=== PATIENT | female | born 1965 | race Caucasian/White ===

== ENCOUNTER 2018-10-26 06:05 | Day surgery (SDC) | payer OTHER ==
--- NOTE | 2018-10-23 08:00 | HP ---
DATE OF SURGERY: 10/26/2018 ANTICIPATED PROCEDURES: 1) EGD. 2) Colonoscopy. HISTORY OF PRESENT ILLNESS: EGD for not being able to keep food down. Gastric bypass ten years ago. Colonoscopy. Patient has a history of polyps, last scope 2015. PAST MEDICAL HISTORY: ALLERGIES: NUBAIN, DILAUDID, TORADOL. MEDICATIONS: Maxalt, Imitrex. PAST SURGICAL HISTORY: Cholecystectomy. Tubal ligation. Rotator cuff. Lithotripsy. SOCIAL HISTORY: Negative. FAMILY HISTORY: Negative. REVIEW OF SYSTEMS: CVS: Negative. Pulmonary: Negative. GI: As above. : Stones. PHYSICAL EXAMINATION: VITAL SIGNS: Normal. CHEST: Clear. COR: Regular. ABDOMEN: No palpable organomegaly or mass. IMPRESSION: Patient requiring both EGD and colonoscopy.
[2018-10-26] MEDS ORDERED: DIPRIVAN 200 MG/20 ML IV ONE (06:06)
[2018-10-26] MEDS ORDERED: Lactated Ringers 1,000 ML IV ONE (06:16)
[2018-10-26] MEDS ORDERED: Lactated Ringers 1,000 ML IV SCH ×2 (06:30)
[2018-10-26 06:37] VITALS: O2SAT 99
[2018-10-26] MEDS ORDERED: Transderm Scop 1.5MG Patch TOP PRN (07:48)
[2018-10-26] MEDS ORDERED: Transderm Scop 1.5MG Patch ONE (07:50)
[2018-10-26 10:06] VITALS: BP 126/85; PULSE 81
--- NOTE | 2018-10-27 09:23 | OP ---
SURGERY DATE/TIME: 10/26/2018814 PREOPERATIVE DIAGNOSIS: Dysphagia. POSTOPERATIVE DIAGNOSIS: Gastric bypass severe stricture approximately 2 mm. PROCEDURE: EGD with dilatation. The stricture was able to be dilated to 6 mm which is still quite small. SURGEON: Joe Medrano M.D. ANESTHESIA: MAC. COMPLICATIONS: None. CONDITION: Stable. INDICATION: The patient did have a very sensitive airway prompting laryngeal spasm with consistent satisfactory treatment of such. DESCRIPTION OF PROCEDURE: The scope introduced. Esophagus normal down to gastroesophageal junction. There was 2 to 3 gastroesophageal reflux disease. There was no hiatal hernia. There was a 60 cc pouch. There was a pinpoint stricture. The balloon was just barely able to be teased into the stricture. It was insufflated. The stricture was stretched from 2 to 6 mm but it was still not big enough for the scope to pass but you could see through there better now. It was at least slightly open. The scope was withdrawn. The patient did have intermittent laryngeal spasm treated with positive airway management, very satisfactory per anesthesia. IMPRESSION: This stricture is tight, was not totally dilated today and I think there needs to be strong consideration or revision of this patient's anastomosis.
== END 2018-10-26 10:19 | disposition home or self-care (01) ==
LOC: SDC 06:05
PROVIDERS: ATTEND Surgery
DX: K22.2 Esophageal obstruction (principal); J38.5 Laryngeal spasm; R13.10 Dysphagia, unspecified; Z98.84 Bariatric surgery status
CPT/HCPCS: C1726; J2704; A9270-GY

== ENCOUNTER 2020-09-24 09:35 | Day surgery (SDC) | payer OTHER ==
[2020-09-24] MEDS ORDERED: BUPIVACAINE 0.5% VIAL IJ ONE (09:36)
[2020-09-24] MEDS ORDERED: Depo-Medrol 40 MG/ML IM ONE (09:36)
[2020-09-24] MEDS ORDERED: Ketamine HCl 50 MG/ML ONE (10:56)
[2020-09-24] MEDS ORDERED: DIPRIVAN 200 MG/20 ML IV ONE (10:57)
--- NOTE | 2020-09-24 12:44 | XRAY ---
Indication: Left shoulder injection Intraoperative fluoroscopy provided for 17 seconds. 2 digital spot images submitted for interpretation demonstrates needle tip projecting over the left glenohumeral joint superiorly. Second needle tip projects subacromial. Small amount of contrast injected for both needle tip placement. Correlate with intraoperative findings/report.
--- NOTE | 2020-09-24 12:46 | XRAY ---
32 seconds fluoroscopy time in surgery for intra-articular and subachromial injections of the right shoulder.
--- NOTE | 2020-09-24 12:46 | XRAY ---
Indication: Right shoulder injection Intraoperative fluoroscopy provided for 32 seconds. 2 digital spot images submitted for interpretation demonstrates needle tip projecting over the right glenohumeral joint superiorly. Second needle tip projects subacromial. Small amount of contrast injected for both needle tip placement. Correlate with intraoperative findings/report.
--- NOTE | 2020-09-24 12:56 | XRAY ---
17 seconds fluoroscopy time in surgery for intra-articular and subachromial injections of the left shoulder.
[2020-09-24] MEDS ORDERED: Lactated Ringers 1,000 ML IV ONE (16:10)
== END 2020-09-24 11:41 | disposition home or self-care (01) ==
LOC: SDC-PAIN 09:35
PROVIDERS: ATTEND Psychiatry & Neurology Pain Medicine
DX: M19.012 Primary osteoarthritis, left shoulder (principal); M19.011 Primary osteoarthritis, right shoulder; M75.52 Bursitis of left shoulder; M75.51 Bursitis of right shoulder; D64.9 Anemia, unspecified; G43.909 Migraine, unspecified, not intractable, without status migrainosus; Z79.899 Other long term (current) drug therapy
CPT/HCPCS: 20610; 73030; 77002; J1030; J2704; Q9966

== ENCOUNTER 2022-08-25 15:18 | Day surgery (SDC) | payer OTHER ==
[2022-08-25] MEDS ORDERED: Sodium Chloride 0.9(Preservative Free) 10 ML IJ ONE (15:19)
[2022-08-25] MEDS ORDERED: Decadron 4 MG INJ IV ONE (15:19)
[2022-08-25] MEDS ORDERED: LIDOCAINE HCL 1% 50 MG/5 ML VL PF IJ ONE (15:19)
--- NOTE | 2022-08-25 19:46 | XRAY ---
Indication: Cervical QUETA. Intraoperative fluoroscopy provided for 37 seconds. 4 digital spot images submitted for interpretation demonstrates posterior needle tip projecting posterior to cervical thoracic junction. Small amount of contrast injected for needle tip placement. Correlate with intraoperative findings/report.
--- NOTE | 2022-08-26 10:46 | XRAY ---
37 seconds fluoroscopy time in surgery for cervical QUETA.
== END 2022-08-25 17:45 | disposition home or self-care (01) ==
LOC: SDC-PAIN 15:18
PROVIDERS: ATTEND Psychiatry & Neurology Pain Medicine
DX: M54.12 Radiculopathy, cervical region (principal); Z79.899 Other long term (current) drug therapy
CPT/HCPCS: 62321; 72040; 77003; J1100; J2001; Q9966

== ENCOUNTER 2024-06-19 16:15 | Emergency (ER) | payer BC ==
[2024-06-19 16:48] VITALS: TEMP 97
[2024-06-19] MEDS: TORAdol 30 mg Injection IV ONE (17:35)
[2024-06-19] MEDS ORDERED: MORPHINE SULFATE 4 MG INJ ONE (17:37)
[2024-06-19] MEDS ORDERED: Zofran 4 MG/2 ML VIAL ONE (17:37)
[2024-06-19] MEDS ORDERED: Sodium Chloride 0.9% 1000 ML 1,000 ML ONE (17:37)
[2024-06-19 17:39] LABS: Absolute Neutrophil Ct (ANC) 3.88 x10^3/uL (1.56-6.13); BASOPHIL % 0.9 % (0.1-1.2); Basophil (Absolute #) 0.06 x10^3/uL (0.01-0.08); Eosinophil % 11.7 % (0.7-5.8); Eosinophil (Absolute #) 0.76 x10^3/uL (0.04-0.36); Hematocrit 36.2 % (34.1-44.9); Hemoglobin 12.3 g/dL (11.2-15.7); IMMATURE GRAN # 0.01 x10^3u/L (0.001-0.031); IMMATURE GRAN % 0.2 % (0.001-0.429); Lymphocyte (Absolute #) 1.28 x10^3/uL (1.18-3.74); Lymphocytes % 19.7 % (19.3-51.7); Mean Cell Volume 82.3 fL (79.4-94.8); Monocyte (Absolute #) 0.51 x10^3/uL (0.24-0.86); Monocytes % 7.8 % (4.7-12.5); Neutrophil % 59.7 % (34.0-71.1); Platelet Count 146 x10^3/uL (182-369); Red Cell Distribution Width 12.4 % (11.7-14.4); White Blood Count 6.5 x10^3/uL (3.98-10.04)
[2024-06-19] MEDS: Zofran 4 MG/2 ML VIAL IV ONE (17:42)
[2024-06-19] MEDS: MORPHINE SULFATE 4 MG INJ IV ONE (17:42)
[2024-06-19] MEDS: Sodium Chloride 0.9% 1000 ML 1,000 ML IV SCH (17:42)
[2024-06-19 17:48] LABS: Appearance Clear (Clear); Bacteria None Seen /HPF (None Seen); Bilirubin Negative (Negative); Blood Moderate (Negative); Epithelial Cells Few /HPF (None Seen); Glucose, Urine Negative (Negative); Hyaline Casts NONE SEEN /LPF (0-2); Ketones Negative (Negative); Leukocyte Esterase Small (Negative); Nitrite Negative (Negative); Ph 6.5 (4.6-8.0); Protein,Urine Dip Trace (Negative); RBC 51-100 /HPF (0-5)
[2024-06-19 17:52] LABS: ALBUMIN 3.8 g/dL (3.5-5.0); ANION GAP 13.8 MEQ/L (5-15); BILIRUBIN,TOTAL 0.5 mg/dL (0.2-1.3); Calcium 8.9 mg/dL (8.4-10.2); Creatinine 1 0.88 mg/dL (0.52-1.04); EST GLOMERULAR FILTRATION RATE 75.7 ML/MIN; Potassium 3.1 mmol/L (3.5-5.1)
--- NOTE | 2024-06-19 18:03 | ERPHSYRPT ---
- History of Present Illness Time Seen by Provider: 06/19/24 16:30 Source: patient Exam Limitations: no limitations Patient Subjective Stated Complaint: pt here for right flank pain today, no fever, no vomiting Triage Nursing Assessment: pt alert, walked in, resp easy, skin w/d/p. abd soft, urine clear yellow Physician History: 58-year-old female presents to emergency department for evaluation of left-sided flank pain. Flank pain started just prior to arrival. Pain described as an ache that is localized no radiation. No significant worsening or improving factors. Patient reports history of multiple kidney stones. Patient has had multiple lithotripsies. Symptoms are similar. No hematuria. No trauma no feve r. No chest pain or shortness of breath. Symptoms are moderate in intensity. Patient has multiple allergies. Patient treated with morphine. Patient otherwise feels well. She denies urinary symptomology. No hematuria no dysuria no frequency or urgency. Patient otherwise feels well. She voices no other complaints or concerns at this time. Portions of this note were created with voice recognition technology. There may be grammatical, spelling, punctuation or sound alike errors Timing/Duration: today Severity: moderate Modifying Factors: Improves With: nothing Associated Symptoms: denies symptoms Allergies/Adverse Reactions: ketorolac tromethamine [From Toradol] Allergy (Severe, Verified 06/19/24 16:28) Swelling of Tongue and Lips nalbuphine HCl [From Nubain] Allergy (Verified 06/19/24 16:28) Swelling of Tongue and Lips hydromorphone [From Dilaudid] Adverse Reaction (Intermediate, Verified 06/19/24 16:28) Headache Home Medications: Rizatriptan Benzoate [Maxalt] 10 mg PO Q2H/PRN PRN 10/19/18 [History] Gabapentin 300 mg PO TID 07/25/20 [History] Pregabalin [Lyrica] 50 mg PO TID 07/25/20 [History] Sumatriptan Succinate 6 mg [Imitrex 6 MG/0.5 ML] 25 mg SQ UD 07/25/20 [History] Hx Tetanus, Diphtheria Vaccination/Date Given: No Hx Influenza Vaccination/Date Given: Yes Hx Pneumococcal Vaccination/Date Given: Yes Immunizations Up to Date: Yes Travel Risk - International Travel Have you traveled outside of the country in past 3 weeks: No - Emerging Infectious Disease Are you exhibiting symptoms associated with any current EIDs: No - Review of Systems Constitutional: No Symptoms, No Fever, No Chills Eyes: No Symptoms Ears, Nose, & Throat: No Symptoms Respiratory: No Symptoms, No Cough, No Dyspnea Cardiac: No Symptoms, No Chest Pain, No Edema, No Syncope Abdominal/Gastrointestinal: No Symptoms, No Abdominal Pain, No Nausea, No Vomiti ng, No Diarrhea Genitourinary Symptoms: No Symptoms, No Dysuria Musculoskeletal: No Symptoms, No Back Pain, No Neck Pain Skin: No Symptoms, No Rash Neurological: No Symptoms, No Dizziness, No Focal Weakness, No Sensory Changes Psychological: No Symptoms Endocrine: No Symptoms Hematologic/Lymphatic: No Symptoms Immunological/Allergic: No Symptoms All Other Systems: Reviewed and Negative - Past Medical History Pertinent Past Medical History: Yes Neurological History: Migraines ENT History: No Pertinent History Cardiac History: No Pertinent History Respiratory History: No Pertinent History Endocrine Medical History: No Pertinent History Musculoskeletal History: No Pertinent History GI Medical History: No Pertinent History History: Other Psycho-Social History: No Pertinent History Female Reproductive Disorders: No Pertinent History Other Medical History: hx sepsis of blood after kidney stone, anemia - Past Surgical History Past Surgical History: Yes Neuro Surgical History: No Pertinent History Cardiac: No Pertinent History Respiratory: No Pertinent History Gastrointestinal: Cholecystectomy, Other Genitourinary: Other Musculoskeletal: Orthopedic Surgery Female Surgical History: Hysterectomy, Tubal Ligation Other Surgical History: gastric bypass, lithotripsy, esophageal dilitation, shoulder repair. cervical spine injections. - Social History Smoking Status: Never smoker Exposure to second hand smoke: No Drug Use: none Patient Lives Alone: No - Social Determinants of Health Will the patient participate in the screening: Declined to provide - Nursing Vital Signs Nursing Vital Signs: Initial Vital Signs Temperature 97.0 F 06/19/24 16:15 Pulse Rate 82 06/19/24 16:15 Respiratory Rate 16 06/19/24 16:15 Blood Pressure 142/82 06/19/24 16:15 O2 Sat by Pulse Oximetry 98 06/19/24 16:15 Pain Scale Pain Intensity 4 - Physical Exam General Appearance: no apparent distress, alert Eye Exam: PERRL/EOMI, eyes nml inspection Ears, Nose, Throat Exam: normal ENT inspection, moist mucous membranes Neck Exam: normal inspection, non-tender, supple, full range of motion Respiratory Exam: normal breath sounds, lungs clear, No respiratory distress Cardiovascular Exam: regular rate/rhythm, normal heart sounds, normal peripheral pulses Gastrointestinal/Abdomen Exam: soft, normal bowel sounds, other (Left CVA tenderness), No tenderness, No mass Back Exam: normal inspection, normal range of motion, No CVA tenderness, No vertebral tenderness Extremity Exam: normal inspection, normal range of motion, pelvis stable Neurologic Exam: alert, oriented x 3, cooperative, normal mood/affect, sensation nml, No motor deficits Skin Exam: normal color, warm, dry, No rash Lymphatic Exam: No adenopathy SpO2 Interpretation: normal SpO2: 96 O2 Delivery: Room Air - Course Nursing assessment & vital signs reviewed: Yes - CT Exams Abdomen/Pelvis CT Interpretation: Tele-radiologist Report (Left ureteral lithiasis measuring 4.2 mm and 4.6 mm with hydronephrosis.) Ordered Tests: Active Orders 24 hr Category Date Time Status IV Insertion STAT Care 06/19/24 17:22 Completed ABDOMEN AND PELVIS W/0 CONTRAS [CT] Stat Exams 06/19/24 17:22 Completed CBC W DIFF Stat Lab 06/19/24 17:30 Completed CMP Stat Lab 06/19/24 17:30 Completed Medication Summary Discontinued Medications Generic Name Dose Route Start Last Admin Trade Name Freq PRN Reason Stop Dose Admin Sodium Chloride 1,000 mls @ 100 mls/hr 06/19/24 17:30 06/19/24 17:42 Sodium Chloride 0.9% 1000 Ml IV 07/19/24 17:29 100 mls/hr .Q10H PADMINI Administration Ceftriaxone Sodium 1 gm in 100 mls @ 200 mls/hr 06/19/24 19:48 06/19/24 21:26 Rocephin 1 Gm / 100 Ml Nacl IV 06/19/24 20:17 Infused STAT ONE Infusion Ceftriaxone Sodium Confirm 06/19/24 20:00 Rocephin 1 Gm / 100 Ml Nacl Administered 06/19/24 20:01 Dose 1 gm in 100 mls @ ud IV .STK-MED ONE Sodium Chloride Confirm 06/19/24 17:37 Sodium Chloride 0.9% 1000 Ml Administered 06/19/24 17:38 Dose 1,000 mls @ ud .ROUTE .STK-MED ONE Ketorolac Tromethamine 30 mg 06/19/24 17:22 06/19/24 17:35 Ketorolac Tromethamine 30 Mg/Ml Inj IV 06/19/24 17:23 Not Given STAT ONE Morphine Sulfate 4 mg 06/19/24 17:29 06/19/24 17:42 Morphine Sulfate 4 Mg/Ml Injection IV 06/19/24 17:30 4 mg STAT ONE Administration Morphine Sulfate Confirm 06/19/24 17:37 Morphine Sulfate 4 Mg/Ml Injection Administered 06/19/24 17:38 Dose 4 mg .ROUTE .STK-MED ONE Ondansetron HCl Confirm 06/19/24 17:37 Ondansetron Hcl 4 Mg/2 Ml Vial Administered 06/19/24 17:38 Dose 4 mg .ROUTE .STK-MED ONE Ondansetron HCl 4 mg 06/19/24 17:40 06/19/24 17:42 Ondansetron Hcl 4 Mg/2 Ml Vial IV 06/19/24 17:41 4 mg STAT ONE Administration Potassium Chloride 40 meq 06/19/24 19:36 06/19/24 20:01 Potassium Chloride Tab 10 Meq Tab PO 06/19/24 19:37 40 meq STAT ONE Administration Potassium Chloride Confirm 06/19/24 20:00 Potassium Chloride Tab 10 Meq Tab Administered 06/19/24 20:01 Dose 40 meq .ROUTE .STK-MED ONE Lab/Rad Data: Laboratory Result Diagrams 06/19/24 17:30 06/19/24 17:30 Laboratory Results 06/19/24 06/19/24 06/19/24 Range/Units Unknown 17:30 17:30 WBC 6.5 (3.98-10.04) x10^3/uL RBC 4.40 (3.93-5.22) x10^6/uL Hgb 12.3 (11.2-15.7) g/dL Hct 36.2 (34.1-44.9) % MCV 82.3 (79.4-94.8) fL MCH 28.0 (25.6-32.2) pg MCHC 34.0 (32.2-35.5) g/dL RDW 12.4 (11.7-14.4) % Plt Count 146 L (182-369) x10^3/uL MPV 10.0 (9.4-12.3) fL Gran % 59.7 (34.0-71.1) % Immature Gran % (Auto) 0.2 (0.001-0.429) % Nucleat RBC Rel Count 0.0 (0.00-0.2) % Eos # (Auto) 0.76 H (0.04-0.36) x10^3/uL Immature Gran # (Auto) 0.01 (0.001-0.031) x10^3u/L Absolute Lymphs (auto) 1.28 (1.18-3.74) x10^3/uL Absolute Monos (auto) 0.51 (0.24-0.86) x10^3/uL Absolute Nucleated RBC 0.00 (0.00-0.012) x10^3u/L Lymphocytes % 19.7 (19.3-51.7) % Monocytes % 7.8 (4.7-12.5) % Eosinophils % 11.7 H (0.7-5.8) % Basophils % 0.9 (0.1-1.2) % Absolute Granulocytes 3.88 (1.56-6.13) x10^3/uL Basophils # 0.06 (0.01-0.08) x10^3/uL Sodium 144 (135-145) mmol/L Potassium 3.1 L (3.5-5.1) mmol/L Chloride 112 H (98-107) mmol/L Carbon Dioxide 21 L (22-30) mmol/L Anion Gap 13.8 (5-15) MEQ/L BUN 15 (7-17) mg/dL Creatinine 0.88 (0.52-1.04) mg/dL Estimated GFR 75.7 ML/MIN Glucose 95 (74-106) mg/dL Calcium 8.9 (8.4-10.2) mg/dL Total Bilirubin 0.50 (0.2-1.3) mg/dL AST 21 (14-36) U/L ALT 15 (0-35) U/L Alkaline Phosphatase 70 (38-126) U/L Serum Total Protein 7.0 (6.3-8.2) g/dL Albumin 3.8 (3.5-5.0) g/dL Urine Color Yellow (Yellow) Urine Appearance Clear (Clear) Urine pH 6.5 (4.6-8.0) Ur Specific [place] 1.020 (1.005-1.030) Urine Protein Trace A (Negative) Urine Glucose (UA) Negative (Negative) mg/dL Urine Ketones Negative (Negative) Urine Blood Moderate A (Negative) Urine Nitrite Negative (Negative) Urine Bilirubin Negative (Negative) Urine Urobilinogen 1.0 A (0.2) mg/dL Ur Leukocyte Esterase Small A (Negative) U Hyaline Cast (Auto) NONE SEEN (0-2) /LPF Urine Microscopic RBC 51-100 A (0-5) /HPF Urine Microscopic WBC 11-20 A (0-5) /HPF Ur Epithelial Cells Few (None Seen) /HPF Urine Bacteria None Seen (None Seen) /HPF Urine Culture Reflexed YES (NO) - Progress Progress: improved Progress Note: Spoke to GE Hamilton for Dr. Flores at 8:53 PM. She will contact Dr. Flores advised him of the case and return call for definitive plan of care 06/19/24 21:[address] Flores at 9:07 PM. However he is requesting that we consult with hospitalist for formal admission 06/19/24 21:07 Patient accepted by at 9:12 PM. They will contact us when they have a bed available 06/19/24 21:14 58-year-old female with a history of kidney stones and lithotripsy procedure presents to our ED with acute onset left flank pain. Physical exam shows mild left-sided costovertebral angle tenderness. Urinalysis reveals a microscopic hematuria and a UTI. CT scan reveals 2 left ureteral lithiasis 1 proximal 1 distal. Antibiotics administered. Case discussed with urology as above. Patient will require decompression of the obstructing stones. Patient transferred to [facility] for further evaluation and treatment. Plan of care discussed with patient. She agrees to transfer to [facility] for further evaluation and treatment. Portions of this note were created with voice recognition technology. There may be grammatical, spelling, punctuation or sound alike errors Complexity of problem addressed is moderate acute complicated no critical care time. Complex of data reviewed and analyzed is extensive. Test ordered chest reviewed results analyzed and correlated clinically with history and physical exam. Management discussed with urology services and hospitalist as described above. Risk of complication and or risk of morbidity/mortality of patient management is high. Patient transferred to higher level of care. Vital stable. Time spent to transfer patient is approximately 20 minutes. Plan of care established for shared decision making. No social determinants of health present to impede follow-up. Portions of this note were created with voice recognition technology. There may be grammatical, spelling, punctuation or sound alike errors 06/20/24 01:35 Counseled pt/family regarding: lab results, diagnosis, need for follow-up - Departure Departure Disposition: Home Clinical Impression: Flank pain, Hematuria, Pyuria, Renal colic on left side, Ureterolithiasis, UTI (urinary tract infection), Hydronephrosis, Hepatomegaly, Hypokalemia Condition: Stable Critical Care Time: No Referrals: HAMIDA WONG [Primary Care Provider] - Follow up/PCP as directed
--- NOTE | 2024-06-19 18:39 | XRAY ---
CLINICAL HISTORY: FLANK PAIN COMPARISON: None TECHNIQUE: Non-contrast CT of the abdomen and pelvis was performed, with the following protocol: axial images, and reconstructed coronal and sagittal images. No intravenous contrast was administered. One of the following dose reduction techniques was utilized for this exam: Automated exposure control, adjustment of the mA and/or kV according to patient size, and use of iterative reconstruction.total DLP =[id number] FINDINGS: Abdomen: Liver: The liver is enlarged measuring 17 cm. No focal lesions, cysts, or masses were identified. Gallbladder and Biliary System: The gallbladder is surgically removed. Pancreas: Pancreatic head, body, and tail are visualized and appear normal in size and density. No pancreatic masses or calcifications were noted. Spleen: Normal in size, shape, and density. No splenic lesions or masses were identified. scattered foci of small calcification likely sequelae of old granulomatous infection Kidneys and Adrenal Glands: Right kidney is normal in size, shape, and position. Cortical thickness is within normal limits. Left kidney is relatively smaller in size with cortical irregularities likely sequel of chronic pyelonephritis. Bilateral small renal stones ranging in size 2 to 6 mm. left-sided upper ureteric and vesicoureteric junction stones measuring 4.6 and 4.2 mm respectively with subsequent mild hydroureteronephrosis. No right-sided backpressure changes Adrenal glands are unremarkable. Evidence of gastric bariatric surgery. Appendix: No signs of acute appendicitis. Pelvis: Urinary Bladder: Normal in contour and wall thickness. No intraluminal lesions. Uterus: is surgically removed No adnexal masses Peritoneal and Retroperitoneal Structures: No free fluid or abnormal fluid collections were identified within the abdomen or pelvis. No lymphadenopathy was noted. Bowel: The visualized bowel loops are normal in caliber and appearance. No evidence of bowel obstruction or wall thickening. Evidence of previous gastric surgery is seen. Bones and Soft Tissues: Mild degenerative changes of the scanned spine Scanned lower chest cuts reveal a right-sided lower lung zone calcified nodule measuring 8 mm likely granuloma IMPRESSION: 1. Left-sided upper ureteric and vesicoureteric junction stones measuring 4.6 and 4.2 mm respectively with subsequent mild hydroureteronephrosis 2. Bilateral small renal stones 3. Sequel of left-sided old pyelonephritis 4. Mild hepatomegaly. 5. Splenic scattered foci of small calcification likely sequelae of old granulomatous infection 6. Right-sided lower lung zone calcified nodule likely old granuloma [facility] was called at [phone] at 05:29 PM LABOR ECONOMIST, 06/19/2024, and ARSEN Ornelas Nurse was informed regarding the presence of important medical findings in the reports. Electronically Signed by: Johan Aiken MD. (06/19/2024 18:35:14 EST)
[2024-06-19 18:51] VITALS: RESP 18
[2024-06-19] MEDS ORDERED: ROCEPHIN 1 GM / 100 ML NaCl 1 GM/100 ML IVPB IV ONE (20:00)
[2024-06-19] MEDS ORDERED: Klor Con ONE (20:00)
[2024-06-19] MEDS: ROCEPHIN 1 GM / 100 ML NaCl 1 GM/100 ML IVPB IV ONE (20:01)
[2024-06-19] MEDS: Klor Con PO ONE (20:01)
[2024-06-20 00:02] VITALS: BP 104/62; PULSE 72; O2SAT 96
== END 2024-06-20 00:25 | disposition short-term general hospital (02) ==
LOC: ED 16:15
DX: N39.0 Urinary tract infection, site not specified (principal); R10.32 Left lower quadrant pain; Z87.442 Personal history of urinary calculi; R31.9 Hematuria, unspecified; N20.1 Calculus of ureter; N13.30 Unspecified hydronephrosis; E87.6 Hypokalemia
CPT/HCPCS: 36415; 74176; 80053; 81001; 85025; 87086; 96374; 96375; 99285; J0696; J2270; J2405; A9270-GY

== ENCOUNTER 2024-09-06 11:54 | Day surgery (SDC) | payer BC ==
--- NOTE | 2024-09-04 14:09 | HP ---
HISTORY OF PRESENT ILLNESS: The patient is a 58-year-old female who presents with complaints of some hemorrhoids that are painful. They have been acting up the past 3 to 4 weeks. She had a colonoscopy about 2022. It was limited to the hepatic flexure for tortuosity. She does have some bleeding. She would like to have her hemorrhoids removed. PAST MEDICAL HISTORY: Migraines, anxiety, depression. HOME MEDICATIONS: Sumatriptan, mirtazapine, alendronate, Botox injection, Abilify, duloxetine. ALLERGIES: Toradol and Dilaudid. PAST SURGICAL HISTORY: Hysterectomy, rotator cuff, bariatric, tonsils, sinus, tubal ligation, lithotripsy. SOCIAL HISTORY: Negative. FAMILY HISTORY: None. REVIEW OF SYSTEMS: CONSTITUTIONAL: Denies fever or chills. CHEST: Denies shortness of breath. CARDIOVASCULAR: Denies chest pain. ABDOMEN: Denies abdominal pain. PHYSICAL EXAMINATION: GENERAL: No acute distress. CARDIOVASCULAR: Regular rate and rhythm. RESPIRATORY: Nonlabored. No shortness of breath ABDOMEN: Soft. RECTAL: Large external hemorrhoids. IMPRESSION: History of polyp, incomplete last colonoscopy, symptomatic hemorrhoids. PLAN: Colonoscopy and hemorrhoidectomy with Dr. Joe Medrano. This report was dictated for Dr. Medrano by Verna Hernández NP.
[2024-09-06] MEDS: Lactated Ringers 1,000 ML IV SCH (12:07)
[2024-09-06] MEDS: CEFAZOLIN 2 GM/100 ML NaCl 2 GM/100 ML IVPB IV SCH (12:07)
[2024-09-06] MEDS ORDERED: Transderm Scop 1.5MG Patch ONE (12:25)
[2024-09-06] MEDS: Transderm Scop 1.5MG Patch TOP PRN (12:27)
[2024-09-06] MEDS ORDERED: propofoL IV ONE (12:38)
[2024-09-06] MEDS ORDERED: Xylocaine-Mpf 2% 5 Ml Vial ONE (12:42)
[2024-09-06] MEDS ORDERED: ROCURONIUM BROMIDE IV ONE (12:42)
[2024-09-06] MEDS ORDERED: Zofran 4 MG/2 ML VIAL ONE ×2 (12:42→14:48)
[2024-09-06] MEDS ORDERED: SUBLIMAZE 100 MCG/2 ML ONE (12:43)
[2024-09-06] MEDS ORDERED: EXPAREL 133 MG/10 ML VIAL IJ ONE (13:43)
[2024-09-06] MEDS ORDERED: BRIDION 200MG/2ML IV ONE (13:57)
[2024-09-06 15:16] VITALS: PULSE 91; TEMP 97.4
[2024-09-06 15:25] VITALS: BP 139/77; RESP 18; O2SAT 97
--- NOTE | 2024-09-07 10:17 | OP ---
SURGERY DATE/TIME: 09/06/24 [id number] PREOPERATIVE DIAGNOSIS: Hemorrhoidal disease of the anus. POSTOPERATIVE DIAGNOSIS: Patient has an anal tumor that is pushing out her external anal canal just a little bit and has the appearance of pseudo hemorrhoid but is really an anal tumor predominantly on the right posterior side from 4 o'clock to 9 o'clock. It is about silver dollar size with elevated external edges and a hollowed out center. Colonoscopic examination was up to hepatic flexure. The tip kept doubling up there, and we stopped at that point. We will get the rest of this in 3 years on a 3-year followup. PROCEDURE: 1) Colonoscopy to hepatic flexure. 2) Exam under anesthesia, anal, with multiple anorectal biopsies. DESCRIPTION OF PROCEDURE AND FINDINGS: The area was visualized at 3 and 4 o'clock. With the 9 o'clock, it was as above described. About 10 really decent biopsies with the laparoscopic gynecological tooth biopsy forceps were obtained and submitted in [facility]. This absolutely seemed malignant clinically, very poorly defined, about 4 cm circular. The procedure and findings were discussed with the family in the waiting room.
== END 2024-09-06 15:39 | disposition home or self-care (01) ==
LOC: SDC 11:54
PROVIDERS: ATTEND Surgery
DX: C20 Malignant neoplasm of rectum (principal); K64.4 Residual hemorrhoidal skin tags; Z09 Encounter for follow-up examination after completed treatment for conditions other than malignant neoplasm; Z86.0100 Personal history of colon polyps, unspecified
CPT/HCPCS: 93005; J0666; J0690; J2405; J2704; J3010; A9270-GY

== ENCOUNTER 2024-09-20 10:01 | Day surgery (SDC) | payer BC ==
[~2024-09-20 10:01] MED LIST: XYLOCAINE 1% HCL 20 ML MDV ONE
[2024-09-20 10:30] VITALS: RESP 16
[2024-09-20] MEDS: Lactated Ringers 1,000 ML IV SCH (10:41)
[2024-09-20] MEDS: CEFAZOLIN 2 GM/100 ML NaCl 2 GM/100 ML IVPB IV SCH (10:41)
[2024-09-20] MEDS ORDERED: propofoL IV ONE ×2 (12:36→13:36)
[2024-09-20] MEDS ORDERED: SUBLIMAZE 100 MCG/2 ML ONE (12:36)
[2024-09-20] MEDS ORDERED: Zofran 4 MG/2 ML VIAL ONE (12:53)
--- NOTE | 2024-09-20 14:16 | XRAY ---
Indication: Port placement. Intraoperative fluoroscopy provided for 5 seconds. 2 digital spot images submitted for interpretation demonstrates right Port-A-Cath with tip projecting over SVC. Correlate with intraoperative findings/report.
[2024-09-20 14:53] VITALS: BP 139/92; PULSE 76; TEMP 97.5; O2SAT 99
--- NOTE | 2024-09-21 13:26 | OP ---
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 PROCEDURE: Right subclavian atrial tunnel Port-A-Cath with fluoroscopic C-arm guidance. SURGEON: Joe Medrano M.D. REALTIME REPORTER: Medical Student 3. ANESTHESIA: General. COMPLICATIONS: None. CONDITION: Stable. INDICATIONS: Patient requiring access. DESCRIPTION OF PROCEDURE AND FINDINGS: Patient was prepped and draped. Guidewire was placed. Catheter placed. Aspirated nicely, flushed nicely. Secured with 3-0 Prolene, 3-0 Vicryl, 4-0 Vicryl, Steri-Strips. Tip was in the right atrium, ready to use.
== END 2024-09-20 14:58 | disposition home or self-care (01) ==
LOC: SDC 10:01
PROVIDERS: ATTEND Surgery
DX: Z45.2 Encounter for adjustment and management of vascular access device (principal); C21.0 Malignant neoplasm of anus, unspecified
CPT/HCPCS: 77001; C1788; J0690; J1642; J2405; J2704; J3010

== ENCOUNTER 2025-06-20 10:10 | Day surgery (SDC) | payer BC ==
--- NOTE | 2025-06-19 21:26 | HP ---
HISTORY OF PRESENT ILLNESS: The patient is a 59-year-old female, presents for followup colonoscopy. She has no colon issues at this time. It is unclear when her last colonoscopy was. PAST MEDICAL HISTORY: Depression, mitral regurgitation, hyperlipidemia, anal squamous cell cancer, migraines. HOME MEDICATIONS: Tamsulosin, pilocarpine, prochlorperazine, melatonin, Lyrica, hydrocodone, Eliquis, duloxetine, B3, alendronate. ALLERGIES: Multiple per chart. PAST SURGICAL HISTORY: Port, hysterectomy, lithotripsy, tubal ligation, gastric bypass, tonsillectomy, rotator cuff, sinus surgery, septoplasty. SOCIAL HISTORY: Negative. FAMILY HISTORY: Breast cancer. REVIEW OF SYSTEMS: CONSTITUTIONAL: Denies fever or chills. CHEST: Denies shortness of breath. CARDIOVASCULAR: Denies chest pain. ABDOMEN: Denies abdominal pain. PHYSICAL EXAMINATION: GENERAL: No acute distress. CARDIOVASCULAR: Regular rate and rhythm. RESPIRATORY: Nonlabored. No shortness of breath. ABDOMEN: Soft. IMPRESSION: The patient has a history of some anal squamous cell cancer and history of polyps. PLAN: Colonoscopy with Dr. Joe Medrano. This report was dictated for Dr. Joe Medrano by Verna Hernández NP
[2025-06-20 10:38] VITALS: RESP 18
[2025-06-20] MEDS: Transderm Scop 1.5MG Patch TOP PRN (11:09)
[2025-06-20] MEDS: Lactated Ringers 1,000 ML IV SCH (11:09)
[2025-06-20] MEDS ORDERED: propofoL IV ONE ×2 (12:05→12:17)
[2025-06-20 13:04] VITALS: BP 133/89; PULSE 67; TEMP 96.9; O2SAT 100
--- NOTE | 2025-06-21 16:39 | OP ---
SURGERY DATE/TIME: 06/20/2025 [id number] PREOPERATIVE DIAGNOSIS: Anal cancer status post treatment, followup exam. POSTOPERATIVE DIAGNOSIS: Post-treatment changes of the anal area. Otherwise, normal examination to cecum. PROCEDURE: Colonoscopy to cecum. SURGEON: Joe Medrano MD [employer] PROFESSOR: Family Practice 3 ANESTHESIA: General. COMPLICATIONS: None. CONDITION: Stable. DESCRIPTION OF PROCEDURE: Patient was taken to endoscopy, left lateral decubitus position. A thorough examination externally was normal. There were post-treatment changes, especially posteriorly and they extend back up to 2.5 cm back behind the anus. There was nothing visible. There was nothing palpable. Palpation of the internal canal was satisfactory and then, with the scope, a very deliberate examination of the anorectal area. Just some very mild post-treatment changes. There was very light superficial fissure. The anus was just a little bigger than the scope. The scope was advanced over to the cecum. Base of cecum, ileocecal valve was normal. Circumferential withdrawal cecum, ascending, hepatic, transverse, splenic, descending, sigmoid, rectum, anus. The prep was okay but not good or excellent but it was still basically a grossly normal examination. Anticipate followup 3 years. If wanted sooner, we will be glad to do this at any time.
== END 2025-06-20 13:07 | disposition home or self-care (01) ==
LOC: SDC 10:10
PROVIDERS: ATTEND Surgery
DX: Z08 Encounter for follow-up examination after completed treatment for malignant neoplasm (principal); Z85.048 Personal history of other malignant neoplasm of rectum, rectosigmoid junction, and anus